=== PATIENT | male | born 1985 | race Caucasian/White ===

== ENCOUNTER → 2017-06-28 | Outpatient (CLI) | payer OTHER | LOC: FIMAGING 12:45 → EDSTATUS 12:48 → FIMAGING 12:50 | PROVIDERS: ATTEND Family Medicine | DX: M50.323 Other cervical disc degeneration at C6-C7 level (principal); M46.92 Unspecified inflammatory spondylopathy, cervical region; Z98.1 Arthrodesis status ==

== ENCOUNTER → 2017-12-03 | Outpatient (CLI) | payer OTHER | LOC: FIMAGING 11:28 | PROVIDERS: ATTEND Family Medicine | DX: M79.89 Other specified soft tissue disorders (principal); M85.872 Other specified disorders of bone density and structure, left ankle and foot ==